=== PATIENT | female | born 1980 | race Caucasian/White ===

== ENCOUNTER 2017-07-23 21:48 | Emergency (ER) | payer OTHER ==
[~2017-07-23] VITALS: Ht 154.9 cm; Wt 72.6 kg
[2017-07-23 22:20] VITALS: Ht 154.9 cm; Wt 72.6 kg
[2017-07-23 22:42] LABS: BASOPHIL % 0.5 % (0-2); PLATELET COUNT 341 x10^3mcL (130-400)
[2017-07-23 22:47] LABS: RED CELL DISTRIBUTION WIDTH 15.2 % (11.5-14.5)
[2017-07-23 22:50] LABS: CALCIUM 9.7 mg/dL (8.5-10.1); CHLORIDE SERUM 95 mmol/L (98-107); CREATININE SERUM 0.9 mg/dL (0.6-1.0); GFR1 > 60 mL/min; GLUCOSE SERUM 114 mg/dL (74-106); POTASSIUM SERUM 3.9 mmol/L (3.5-5.1); SODIUM SERUM 135 mmol/L (136-145)
[2017-07-23 23:04] LABS: AMPHETAMINE QUAL UR NONE DETECTED (NEG <=1000)
[2017-07-24 01:04] LABS: T3 TOTAL 1.15 ng/mL
[2017-07-24 05:58] VITALS: BP 136/92
== END 2017-07-24 04:35 | disposition home or self-care (01) ==
LOC: ED 21:48
PROVIDERS: Emergency Medicine Emergency Medical Services
DX: F10.239 Alcohol dependence with withdrawal, unspecified (principal); J45.909 Unspecified asthma, uncomplicated; G43.909 Migraine, unspecified, not intractable, without status migrainosus; Z91.018 Allergy to other foods
CPT/HCPCS: 36415; 85378; J2060; J7030